=== PATIENT | female | born 1990 | race Caucasian/White ===

== ENCOUNTER 2021-08-26 10:06 | Emergency (ER) | payer OTHER, SELFPAY ==
[2021-08-26] MEDS ORDERED: KETOROLAC 30 MG/ML INJ ONE (11:43)
--- NOTE | 2021-08-26 12:27 | ER ---
Nurse's Notes [facility] Name: Ramonita Mcdonald Age: 30 yrs Sex: Female : 1990 Arrival Date: 08/26/2021 Time: 10:10 Bed 13 Private MD: Diagnosis: Acute serous otitis media, right ear Presentation: 08/26 10:41 Chief complaint: Patient states: she started feeling like her right ear was clogged ap3 yesterday, but was woken in the middle of the night with severe right ear pain. Patient states she was able to get a little relief from the pain with advil, however the pain has returned and she reports hearing a periodic "popping" sound. Patient reports being congested for several days. Coronavirus screen: At this time, the client does not indicate any symptoms associated with coronavirus-19. Ebola Screen: No symptoms or risks identified at this time. Initial Sepsis Screen: Does the patient meet any 2 criteria? No. Patient's initial sepsis screen is negative. Does the patient have a suspected source of infection? No. Patient's initial sepsis screen is negative. Risk Assessment: Do you want to hurt yourself or someone else? Patient reports no desire to harm self or others. Onset of symptoms was August 26, 2021. 10:41 Method Of Arrival: Ambulatory ap3 10:41 Acuity: MAGDALENO 4 ap3 Triage Assessment: 10:42 General: Appears in no apparent distress. Behavior is calm, cooperative. Pain: ap3 Complains of pain in right ear Pain radiates to right jaw Pain currently is 5 out of 10 on a pain scale. at worst was 9 out of 10 on a pain scale. EENT: Reports nasal congestion. Neuro: Level of Consciousness is awake, alert, obeys commands, Oriented to person, place, time, situation, Appropriate for age. Cardiovascular: Patient's skin is warm and dry. Respiratory: Airway is patent Respiratory effort is even, unlabored. 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 Flu vaccine is not up to date. - Social history:: Smoking status: Patient reports the use of cigarette tobacco products, smokes one-half pack cigarettes per day. Screenin:45 Abuse screen: Denies threats or abuse. Nutritional screening: No deficits noted. ap3 Tuberculosis screening: No symptoms or risk factors identified. Fall Risk None identified. Assessment: 11:00 General: SEE TRIAGE NOTE. bp 12:33 Reassessment: PT D/C HOME AMBULATORY, DX WITH OTITIS MEDIA. bp Vital Signs: 10:41 BP 104 / 69; Temp 98.1; Weight 61.69 kg; Height 5 ft. 3 in. (160.02 cm); Pain 5/10; ap3 12:05 BP 99 / 66; Pulse 51; Resp 16; Pulse Ox 100% ; bp 10:41 Body Mass Index 24.09 (61.69 kg, 160.02 cm) ap3 ED Course: 10:10 Patient arrived in ED. ds1 10:28 Alex Hannah PA is PHCP. [facility] 10:28 Richi Leigh MD is Attending Physician. [facility] 10:42 Triage completed. ap3 10:45 Patient has correct armband on for positive identification. ap3 10:46 Arm band placed on left wrist. ap3 11:22 Bennett Montoya, DIVYA is Primary Nurse. bp 12:33 No provider procedures requiring assistance completed. Patient did not have IV access bp during this emergency room visit. Administered Medications: 11:30 Drug: Ketorolac 30 mg Route: IM; Site: right gluteus; bp 11:52 Follow up: Response: No adverse reaction; Pain is decreased bp Outcome: 12:26 Discharge ordered by . [facility] 12:33 Discharged to home ambulatory. bp 12:33 Condition: stable 12:33 Discharge instructions given to patient, Instructed on discharge instructions, follow up and referral plans. medication usage, Demonstrated understanding of instructions, follow-up care, medications, Prescriptions given X 1. 12:34 Patient left the ED. bp Signatures: Alex Hannah PA PA jmm Sanford, Demi ds1 Bennett Montoya, RN DIVYA bp Jessica Miller RN RN ap3
--- NOTE | 2021-08-26 12:27 | EDPHYS ---
Physician Documentation [facility] Name: Ramonita Mcdonald Age: 30 yrs Sex: Female : 1990 Arrival Date: 08/26/2021 Time: 10:10 Bed 13 Private MD: WENDY Physician Richi Leigh HPI: 08/26 10:49 This 30 yrs old Female presents to ER via Ambulatory with complaints of Ear Pain. jmm 10:49 The patient presents with pain. Onset: The symptoms/episode began/occurred 1 day(s) jmm ago. Modifying factors: The symptoms are alleviated by nothing, the symptoms are aggravated by nothing. Associated signs and symptoms: Pertinent negatives: fever. It is unknown whether or not the patient has had similar symptoms in the past. 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 Flu vaccine is not up to date. - Social history:: Smoking status: Patient reports the use of cigarette tobacco products, smokes one-half pack cigarettes per day. ROS: 10:49 Constitutional: Negative for fever, chills, and weight loss, Cardiovascular: Negative jmm for chest pain, palpitations, and edema, Respiratory: Negative for shortness of breath, cough, wheezing, and pleuritic chest pain. 10:49 ENT: Positive for ear pain. 10:49 All other systems are negative. Exam: 10:49 Constitutional: This is a well developed, well nourished patient who is awake, alert, jmm and in no acute distress. Head/Face: atraumatic. Eyes: EOMI, no conjunctival erythema appreciated 10:49 Neck: Trachea midline, Supple Chest/axilla: Normal chest wall appearance and motion. Cardiovascular: Regular rate and rhythm. No edema appreciated Respiratory: Normal respirations, no respiratory distress appreciated Abdomen/GI: Non distended, soft Back: Normal ROM Skin: General appearance color normal MS/ Extremity: Moves all extremities, no obvious deformities appreciated, no edema noted to the lower extremities Neuro: Awake and alert Psych: Behavior is normal, Mood is normal, Patient is cooperative and pleasant 10:49 ENT: TM's: erythema, that is moderate, on the right, Posterior pharynx: is normal. Vital Signs: 10:41 BP 104 / 69; Temp 98.1; Weight 61.69 kg; Height 5 ft. 3 in. (160.02 cm); Pain 5/10; ap3 12:05 BP 99 / 66; Pulse 51; Resp 16; Pulse Ox 100% ; bp 10:41 Body Mass Index 24.09 (61.69 kg, 160.02 cm) ap3 MDM: 10:49 Patient medically screened. [facility] 12:24 Data reviewed: vital signs, nurses notes. Counseling: I had a detailed discussion with [facility] the patient and/or guardian regarding: the historical points, exam findings, and any diagnostic results supporting the discharge/admit diagnosis, the need for outpatient follow up, to return to the emergency department if symptoms worsen or persist or if there are any questions or concerns that arise at home. ED course: Patient is alert nontoxic in appearance in the ED. I do not suspect mastoiditis. Patient advised follow-up with PCP and otherwise given strict return precautions. Patient understood agrees with the plan of care.. Administered Medications: 11:30 Drug: Ketorolac 30 mg Route: IM; Site: right gluteus; bp 11:52 Follow up: Response: No adverse reaction; Pain is decreased bp Disposition Summary: 08/26/21 12:26 Discharge Ordered Location: Home [facility] Condition: Stable [facility] Diagnosis - Acute serous otitis media, right ear [facility] Followup: [facility] - With: Private Physician - When: 2 - 3 days - Reason: Recheck today's complaints, Continuance of care, Re-evaluation by your physician Discharge Instructions: - Discharge Summary Sheet [facility] - Otitis Media, Adult [facility] Forms: - Medication Reconciliation Form [facility] - Thank You Letter [facility] - Antibiotic Education [facility] - Prescription Opioid Use [facility] Prescriptions: - Augmentin 875-125 mg Oral Tablet - take 1 tablet by ORAL route every 12 hours for 10 days; 20 tablet; Refills: 0, [facility] Product Selection Permitted Addendum: 08/28/2021 18:40 Co-signature as Attending Physician, Richi Leigh MD I agree with the assessment and c masterson plan of care. Signatures: Richi Leigh MD MD cha Mickail, Joel, PA PA jmm Peltier, Brian, RN RN bp Jesscia Miller RN RN ap3
[2021-08-26 18:50] VITALS: TEMP 98.1
[2021-08-26 18:51] VITALS: BP 99/66; O2SAT 100
== END 2021-08-26 12:34 | disposition home or self-care (01) ==
LOC: ER 10:06
DX: H65.01 Acute serous otitis media, right ear (principal); F17.210 Nicotine dependence, cigarettes, uncomplicated; F32.A Depression, unspecified; F41.9 Anxiety disorder, unspecified
CPT/HCPCS: 96372; 99283

== ENCOUNTER 2023-11-12 18:08 | Emergency (ER) | payer OTHER ==
--- NOTE | 2023-11-12 18:38 | ER ---
Nurse's Notes [facility] Name: Ramonita Mcdonald Age: 32 yrs Sex: Female : 1990 Arrival Date: 11/12/2023 Time: 18:08 Bed IW4 Private MD: Diagnosis: ED Course: 11/11 18:11 Patient arrived in ED. ts1 18:30 Patient's name was called from ER lobby. No response. aa5 18:33 Sebastian Arriaga MD is Attending Physician. rt 18:34 Triage completed. aa5 18:36 Patient's name was called from ER lobby. No response. aa5 Administered Medications: No medications were administered Outcome: 18:37 Patient left the ED. aa5 Signatures: Sienna Newton RN RN aa5 Sebastian Arriaga MD MD rt Dorys Guerrero PAS PAS ts1 Corrections: (The following items were deleted from the chart) 18:36 18:33 Arm band placed on aa aa 18:37 18:33 Chief complaint: Patient states: sent here by Dr. Low (PCP) for diarrhea. Pt aa5 states "I was diagnosed with diverticulitis and I was constipated but since taking the antibiotics I've been having diarrhea". Pt denies vomiting. aa5 18:37 18:33 Risk Assessment: Do you want to hurt yourself or someone else? Patient reports no aa5 desire to harm self or others. aa5 18:37 18:33 Initial Sepsis Screen: Does the patient meet any 2 criteria? No. Patient's aa5 initial sepsis screen is negative. Does the patient have a suspected source of infection? No. Patient's initial sepsis screen is negative. aa5 18:37 18:33 Ebola Screen: Patient denies travel to an Ebola-affected area in the 21 days aa5 before illness onset. aa5 18:37 18:33 Coronavirus screen: diarrhea, aa5 aa5 18:37 18:33 Onset of symptoms was October 2023 aa aa5 18:37 18:33 Acuity: MAGDALENO 3 aa5 aa5 18:37 18:33 Method Of Arrival: Ambulatory aa5 aa 18:37 18:33 BP 139 / 88; Pulse 88bpm; Resp 18bpm; Spontaneous; Pulse Ox 99% RA; Temp 97.9F aa5 Temporal; aa5
--- NOTE | 2023-11-13 18:38 | EDPHYS ---
Physician Documentation [facility] Name: Ramonita Mcdonald Age: 32 yrs Sex: Female : 1990 Arrival Date: 11/12/2023 Time: 18:08 Bed IW4 Private MD: ED Physician Sebastian Arriaga MDM: 11/11 18:38 ED course: Patient eloped prior to triage and before my evaluation of the patient.. rt Administered Medications: No medications were administered Disposition Summary: 11/12/23 18:37 Eloped Notes: Disposition: Before Triage aa5 Reason: unknown aa5 Signatures: Sienna Newton RN RN aa5 Sebastian Arriaga MD MD rt
== END 2023-11-12 18:37 | disposition left against medical advice (07) ==
LOC: ER 18:08
DX: Z02.9 Encounter for administrative examinations, unspecified (principal)